=== PATIENT | male | born 1990 | race Caucasian/White ===

== ENCOUNTER 2019-07-11 01:28 | Emergency (ER) ==
[~2019-07-11] VITALS: Ht 182.9 cm; Wt 81.0 kg
--- NOTE | 2019-07-11 01:47 | NUR ---
THIS IS A 29 YO MALE COMING IN FOR "SWOLLEN TONSILS" AND THROAT PAIN. PATIENT COMPLAINS OF 9/10 PAIN WHEN SWOLLOWING. PATIENT RECENTLY HAD FLU A FEW WEEKS AGO, WAS SEEN AT URGENT CARE TODAY FOR THROAT PAIN. THEY SENT PATIENT HOME WITH DIAGNOSIS OF TONSILLITIS WITH ANTIBIOTICS TO START TOMORROW. PATIENT STATES IT'S GETTING WORSE, AND DECIDED TO COME TO [facility]. DENIES ANY MEDICAL HX. UPON PALPATION, SWELLING IS NOTED ON RIGHT LYMPH NODE UNDER CHIN, AND TONSIL MORE SWOLLEN ON RIGHT SIDE. CALL LIGHT IN REACH, FAMILY IN ROOM, DENIES NEEDS AT THIS TIME.
[2019-07-11] MEDS ORDERED: DEXAMETHASONE 4 MG TABLET PO STA (01:50)
[2019-07-11] MEDS ORDERED: IBUPROFEN 800 MG TABLET PO STA (01:50)
--- NOTE | 2019-07-11 01:50 | NUR ---
PATIENT ABLE TO MAINTAIN SECRETIONS AND AIRWAY.
[2019-07-11] MEDS ORDERED: OXYcodone/APAP 5/325MG TABLET ONE (01:58)
[2019-07-11] MEDS ORDERED: LIDOCAINE 1%-EPI 1:100K, 20ML ONE (01:58)
[2019-07-11] MEDS ORDERED: DEXAMETHASONE 4 MG TABLET ONE (01:58)
[2019-07-11] MEDS ORDERED: IBUPROFEN 800 MG TABLET ONE (01:58)
[2019-07-11] MEDS ORDERED: LIDOCAINE 1%-EPI 1:100K, 20ML SQ ONE (02:00)
[2019-07-11] MEDS ORDERED: OXYcodone/APAP 5/325MG TABLET PO ONE (02:00)
[2019-07-11] MEDS ORDERED: LIDOCAINE-MPF 1%, 2ML ONE ×2 (02:00→03:00)
--- NOTE | 2019-07-11 02:03 | NUR ---
PATIENT MEDICATED PER [facility], TOLERATED WELL. ABLE TO SWOLLOW PO MEDICATIONS. LIDOCAINE AT [facility] FOR PA I&D OF ABCESS.
[2019-07-11] MEDS ORDERED: AMOXICILLIN/CLAV 875-125MG TABLET PO STA (02:34)
[2019-07-11] MEDS ORDERED: AMOXICILLIN/CLAV 875-125MG TABLET ONE (03:01)
[2019-07-11 03:37] VITALS: BP 129/74
== END 2019-07-11 03:55 | disposition home or self-care (01) ==
LOC: ED 03:30
DX: J36 Peritonsillar abscess (principal); J02.0 Streptococcal pharyngitis
CPT/HCPCS: 42700; 94640; 99284